=== PATIENT | female | born 1980 | race Caucasian/White ===

== ENCOUNTER → 2020-10-18 09:20 | Outpatient (BNVA) | payer SELFPAY | PROVIDERS: Family Provider Nurse Practitioner Family; PCP Nurse Practitioner Family; Visit Provider Nurse Practitioner Women's Health | DX: Z01.419 Encounter for gynecological examination (general) (routine) without abnormal findings (principal); N94.10 Unspecified dyspareunia; Z30.9 Encounter for contraceptive management, unspecified | CPT/HCPCS: 87491; 87591; 87661; 88175 ==

== ENCOUNTER → 2020-11-14 10:33 | Outpatient (BNVA) | payer SELFPAY | PROVIDERS: Family Provider Nurse Practitioner Family; PCP Nurse Practitioner Family; Visit Provider Obstetrics & Gynecology | DX: R87.612 Low grade squamous intraepithelial lesion on cytologic smear of cervix (LGSIL) (principal) | CPT/HCPCS: 88305 ==

== ENCOUNTER → 2021-07-01 12:23 | Outpatient (BNVA) | payer SELFPAY | PROVIDERS: Family Provider Nurse Practitioner Family; PCP Nurse Practitioner Family; Visit Provider Nurse Practitioner | DX: J02.0 Streptococcal pharyngitis (principal) | CPT/HCPCS: 87880 ==

== ENCOUNTER → 2021-11-24 14:40 | Outpatient (BNVA) | payer OTHER, SELFPAY | PROVIDERS: Family Provider Nurse Practitioner Family; PCP Nurse Practitioner Family; Visit Provider Obstetrics & Gynecology | DX: Z01.419 Encounter for gynecological examination (general) (routine) without abnormal findings (principal) | CPT/HCPCS: 87624 ==

== ENCOUNTER → 2022-11-30 10:00 | Outpatient (BNVA) | payer OTHER, SELFPAY | PROVIDERS: Family Provider Nurse Practitioner Family; PCP Nurse Practitioner Family; Visit Provider Obstetrics & Gynecology | DX: Z01.419 Encounter for gynecological examination (general) (routine) without abnormal findings (principal) | CPT/HCPCS: 87624 ==

== ENCOUNTER → 2023-07-30 09:50 | Outpatient (BNVA) | payer OTHER, SELFPAY | PROVIDERS: Family Provider Nurse Practitioner Family; PCP Nurse Practitioner Family; Visit Provider Family Medicine | DX: L52 Erythema nodosum (principal); K04.7 Periapical abscess without sinus; Z72.51 High risk heterosexual behavior; A51.0 Primary genital syphilis; Z30.41 Encounter for surveillance of contraceptive pills; F32.1 Major depressive disorder, single episode, moderate | CPT/HCPCS: 80053; 80061; 84439; 84443; 85025; 85651; 86140; 86695; 86696; 87491; 87591; 87806 ==

== ENCOUNTER → 2024-06-16 11:49 | Outpatient (BNVA) | payer OTHER, SELFPAY | PROVIDERS: Family Provider Nurse Practitioner Family; PCP Family Medicine; Visit Provider Nurse Practitioner Women's Health | DX: Z87.42 Personal history of other diseases of the female genital tract (principal) | CPT/HCPCS: 87624 ==

== ENCOUNTER 2024-08-03 09:11 | Outpatient (CLI) | payer OTHER, SELFPAY ==
--- NOTE | 2024-08-03 09:30 | MM_ITS ---
WS: [id number] DIAGNOSTIC BILATERAL DIGITAL BREAST TOMOSYNTHESIS MAMMOGRAPHY WITH CAD LEFT breast ultrasound, limited HISTORY: N64.4 - Mastodynia, palpable mass in the medial LEFT breast. The exact location was not prov ided by the nurse practitioner. COMPARISON: None available. TECHNIQUE: Bilateral craniocaudad, mediolateral oblique, and mediolateral views are submitted with to mosynthesis and SM. Spot compression LEFT CC and MLO. Computer aided detection utilized. Breast composition: The breasts are extremely dense, which lowers the sensitivity of mammography. As per history there is a palpable mass in the medial LEFT breast. No additional location was provide d. No suspicious masses or calcifications are identified. No distortion or nipple retraction. Ultrasound will be performed of the medial LEFT breast. LEFT breast, limited. Ultrasound is directed to the medial breast, external and retroareolar. No solid masses or increased vascularity. There is a very small cyst at 6:00, 1 cm from the nipple measuring 0.6 x 0.5 x 0.2 cm. MM/MM diag BI tomosynthesis [id number] IMPRESSION: BI-RADS: 2 - Benign FOLLOW UP: 1 Year Follow-up No suspicious mass identified in the medial LEFT breast.
--- NOTE | 2024-08-03 10:00 | US_ITS ---
WS: [id number] DIAGNOSTIC BILATERAL DIGITAL BREAST TOMOSYNTHESIS MAMMOGRAPHY WITH CAD LEFT breast ultrasound, limited HISTORY: N64.4 - Mastodynia, palpable mass in the medial LEFT breast. The exact location was not prov ided by the nurse practitioner. COMPARISON: None available. TECHNIQUE: Bilateral craniocaudad, mediolateral oblique, and mediolateral views are submitted with to mosynthesis and SM. Spot compression LEFT CC and MLO. Computer aided detection utilized. Breast composition: The breasts are extremely dense, which lowers the sensitivity of mammography. As per history there is a palpable mass in the medial LEFT breast. No additional location was provide d. No suspicious masses or calcifications are identified. No distortion or nipple retraction. Ultrasound will be performed of the medial LEFT breast. LEFT breast, limited. Ultrasound is directed to the medial breast, external and retroareolar. No solid masses or increased vascularity. There is a very small cyst at 6:00, 1 cm from the nipple measuring 0.6 x 0.5 x 0.2 cm. US/US breast LT complete [id number] IMPRESSION: BI-RADS: 2 - Benign FOLLOW UP: 1 Year Follow-up No suspicious mass identified in the medial LEFT breast.
== END 2024-08-03 09:12 | disposition home or self-care (01) ==
LOC: RAD 09:13
PROVIDERS: Family Provider Nurse Practitioner Family; PCP Family Medicine; Visit Provider Nurse Practitioner Women's Health
DX: N64.4 Mastodynia (principal); N60.02 Solitary cyst of left breast; R92.323 Mammographic fibroglandular density, bilateral breasts
CPT/HCPCS: 76641; 77062; G0279

== ENCOUNTER → 2025-06-28 10:21 | Outpatient (BNVA) | payer OTHER, SELFPAY | PROVIDERS: Family Provider Nurse Practitioner Family; PCP Family Medicine; Visit Provider Nurse Practitioner Women's Health | DX: Z12.4 Encounter for screening for malignant neoplasm of cervix (principal) | CPT/HCPCS: 87624 ==